=== PATIENT | female | born 1930 | race Caucasian/White ===

== ENCOUNTER 2017-06-30 08:22 | Emergency (ER) | payer MEDICARE ==
[2017-06-30 08:32] VITALS: TEMP 97.7
[2017-06-30] MEDS ORDERED: SODIUM CHLORIDE 0.9% 500 ML IV STA (08:38)
[2017-06-30] MEDS ORDERED: MAG HYDROX/AL HYDROX/SIMETH 30 ML, HYOSCYAMINE ELIXIR 10 ML, CIMETIDINE HCL 300 MG PO STA ×3 (08:39)
--- NOTE | 2017-06-30 08:55 | ED ---
Abdominal Pain HPI - General Source: patient, RN notes reviewed Mode of arrival: ambulatory Limitations: no limitations <Anup Morton - Last Filed: 06/30/17 11:27> <Gregg Bobo - Last Filed: 06/30/17 11:38> - General Chief Complaint: Abdominal Pain Stated Complaint: weakness/upset stomach Time Seen by Provider: 06/30/17 08:37 - History of Present Illness Initial Comments: This 86-year-old female presents emergency Department with chief complaint of gastric pain. Patient has been having this pain on and off for the last few weeks. Patient states it usually gets worse at nighttime. She also noticed when she drank carbonated beverages that it did increase her symptoms. Patient states that she has no pain that radiates to her back. Patient denies any chest pain at this time. She states she gets pressure in her epigastric region in between her breasts. Patient states that when she takes Tums that the symptoms resolved. Patient states that she is symptom-free at this time. Patient states that she did see her primary care physician who ordered a right upper quadrant ultrasound to rule out any gallbladder disease, this was normal. Patient does admit that she does not drink as much fluids as she usually does. Patient states she occasionally does have some dizzy spells. Patient states chronic she is not dizzy. (Anup Morton) - Related Data Home Medications Medication Instructions Recorded Confirmed Clopidogrel Bisulfate [Plavix] 75 mg PO DAILY 06/30/17 06/30/17 Multivitamins, Thera [Multivitamin 1 tab PO DAILY 06/30/17 06/30/17 (formulary)] Ranitidine HCl 150 mg PO BID 06/30/17 06/30/17 Simvastatin [Zocor] 20 mg PO DAILY 06/30/17 06/30/17 Previous Rx's Medication Instructions Recorded Omeprazole 40 mg PO DAILY #14 capsule. 06/30/17 Allergies Allergy/AdvReac Type Severity Reaction Status Date / Time No Known Allergies Allergy Verified 06/30/17 09:04 Review of Systems ROS Other: All systems not noted in ROS Statement are negative. <Anup Morton - Last Filed: 06/30/17 11:27> ROS Other: All systems not noted in ROS Statement are negative. <Gregg Bobo - Last Filed: 06/30/17 11:38> ROS Statement: Those systems with pertinent positive or pertinent negative responses have been documented in the HPI. Past Medical History Past Medical History: CVA/TIA, GERD/Reflux, Hyperlipidemia Additional Past Medical History / Comment(s): Pt reports having a stroke 10 years ago History of Any Multi-Drug Resistant Organisms: None Reported Past Surgical History: No Surgical Hx Reported Past Psychological History: Anxiety, Depression Smoking Status: Never smoker Past Alcohol Use History: None Reported Past Drug Use History: None Reported <Anup Morton - Last Filed: 06/30/17 11:27> General Exam Limitations: no limitations General appearance: alert, in no apparent distress Head exam: Present: atraumatic, normocephalic, normal inspection Eye exam: Present: normal appearance, PERRL, EOMI. Absent: scleral icterus, conjunctival injection, periorbital swelling ENT exam: Present: normal exam, normal oropharynx, mucous membranes moist, TM's normal bilaterally, normal external ear exam Neck exam: Present: normal inspection, full ROM. Absent: tenderness, meningismus, lymphadenopathy Respiratory exam: Present: normal lung sounds bilaterally. Absent: respiratory distress, wheezes, rales, rhonchi, stridor Cardiovascular Exam: Present: regular rate, normal rhythm, normal heart sounds. Absent: systolic murmur, diastolic murmur, rubs, gallop, clicks GI/Abdominal exam: Present: soft, normal bowel sounds. Absent: distended, tenderness, guarding, rebound, rigid Neurological exam: Present: alert, oriented X3, CN II-XII intact, reflexes normal. Absent: motor sensory deficit Skin exam: Present: warm, dry, intact, normal color. Absent: rash <Anup Morton - Last Filed: 06/30/17 11:27> Course <Anup Morton - Last Filed: 06/30/17 11:27> <Gregg Bobo - Last Filed: 06/30/17 11:38> Vital Signs 06/30/17 08:27 Temperature 97.7 F Pulse Rate 70 Respiratory 18 Rate Blood Pressure 149/69 O2 Sat by Pulse 97 Oximetry - Reevaluation(s) Reevaluation #1: 06/30/17 11:37 PT supervision: I did personally do a [id number] evaluation of the patient she is awake alert oriented 3 in no distress. I did review the imaging and reports of the lab work. She does have a hiatal hernia the symptoms are consistent with that. We did discuss this with the patient and with her niece who is a nurse was present with her. 06/30/17 11:38 (Gregg Bobo) Medical Decision Making - Lab Data Result diagrams: 06/30/17 10:15 06/30/17 10:15 <Anup Morton - Last Filed: 06/30/17 11:27> - Lab Data Result diagrams: 06/30/17 10:15 06/30/17 10:15 <Gregg Bobo - Last Filed: 06/30/17 11:38> - Medical Decision Making 86-year-old female was in emergency department for intermittent nausea and acid reflux. Patient does have a hiatal hernia on x-ray. Patient's labwork is unremarkable. Patient is symptom-free at this time. We did discuss trying medication such as omeprazole to help with her acid reflux that she is able follow-up with her primary care physician and will be given on-call surgery if symptoms do not improve. Patient family agreed to plan (Anup Morton) - Lab Data Lab Results 06/30/17 06/30/17 06/30/17 Range/Units 10:15 10:15 10:15 WBC 6.6 (3.8-10.6) k/uL RBC 4.63 (3.80-5.40) m/uL Hgb 14.8 (11.4-16.0) gm/dL Hct 44.0 (34.0-46.0) % MCV 94.9 (80.0-100.0) fL MCH 32.0 (25.0-35.0) pg MCHC 33.7 (31.0-37.0) g/dL RDW 14.0 (11.5-15.5) % Plt Count 268 (150-450) k/uL Neutrophils % 67 % Lymphocytes % 20 % Monocytes % 9 % Eosinophils % 2 % Basophils % 1 % Neutrophils # 4.4 (1.3-7.7) k/uL Lymphocytes # 1.3 (1.0-4.8) k/uL Monocytes # 0.6 (0-1.0) k/uL Eosinophils # 0.1 (0-0.7) k/uL Basophils # 0.0 (0-0.2) k/uL Sodium 140 (137-145) mmol/L Potassium 4.1 (3.5-5.1) mmol/L Chloride 103 (98-107) mmol/L Carbon Dioxide 25 (22-30) mmol/L Anion Gap 12 mmol/L BUN 8 (7-17) mg/dL Creatinine 0.81 (0.52-1.04) mg/dL Est GFR (MDRD) Af Amer >60 (>60 ml/min/1.73 sqM) Est GFR (MDRD) Non-Af >60 (>60 ml/min/1.73 sqM) Glucose 91 (74-99) mg/dL Calcium 9.6 (8.4-10.2) mg/dL Total Bilirubin 0.8 (0.2-1.3) mg/dL AST 31 (14-36) U/L ALT 35 (9-52) U/L Alkaline Phosphatase 85 (38-126) U/L Troponin I <0.012 (0.000-0.034) ng/mL Total Protein 7.2 (6.3-8.2) g/dL Albumin 4.4 (3.5-5.0) g/dL Amylase 42 (30-110) U/L Lipase 308 H (23-300) U/L Disposition Time of Disposition: 11:29 <Anup Morton - Last Filed: 06/30/17 11:27> <Gregg Bobo - Last Filed: 06/30/17 11:38> Clinical Impression: Hiatal hernia Disposition: HOME SELF-CARE Condition: Stable Instructions: Hiatal Hernia (ED) Additional Instructions: Please return to the Emergency Department if symptoms worsen or any other concerns. Prescriptions: Omeprazole 40 mg PO DAILY #14 capsule.dr Referrals: Miguel Angel Sahu Jr, DO [Primary Care Provider] - 1-2 days Kassy Bryant MD [STAFF PHYSICIAN] - 1-2 days Addendum entered and electronically signed by Anup Morton PA-C 06/30/17 11: 30: EKG performed at 9:25 normal sinus rhythm with a rate of 63 MI interval 198 QS duration 82 QT/QTC 434/444
--- NOTE | 2017-06-30 09:50 | XR ---
EXAMINATION TYPE: XR chest 2V DATE OF EXAM: 06/30/2017 COMPARISON: NONE HISTORY: Upper abdominal and chest pain. TECHNIQUE: Frontal and lateral views of the chest are obtained. FINDINGS: There is chronic parenchymal change without suspicious focal air space opacity, pleural ef fusion, or pneumothorax seen. There is mild to moderate apical pleural and parenchymal scarring. The re is left basilar linear scarring. The cardiac silhouette size is within normal limits with atherosc lerotic and ectatic thoracic aorta. Retrocardiac opacity consistent with moderate to large size hiata l hernia is present. The osseous structures are demineralized. Suspect azygos lobe or fissure. IMPRESSION: Chronic parenchymal changes without acute pulmonary process. Moderate to large size like ly fixed hiatal hernia noted.
--- NOTE | 2017-06-30 09:51 | XR ---
EXAMINATION TYPE: XR KUB DATE OF EXAM: 06/30/2017 9:41 AM CLINICAL HISTORY: Upper abdominal pain. TECHNIQUE: Two Upright KUB images of the abdomen are obtained. COMPARISON: None. FINDINGS: Scattered gas is seen in non-distended small bowel loops. Gas and fecal material is seen in non-distended colon. There are scattered pelvic phleboliths. There is left basilar linear scarring. Retrocardiac opacity consistent with moderate size hiatal hernia is noted. No pneumoperitoneum is pre sent. Slight underlying scoliotic curvature is seen. There is mild to moderate multilevel spurring in the lumbar spine. Mild to moderate joint space loss in both hips is present. IMPRESSION: Overall nonobstructive bowel gas pattern.
[2017-06-30 10:53] LABS: Basophils % (A) 1 %; CH 31.2; Eosinophils # (A) 0.1 k/uL (0-0.7); Eosinophils % (A) 2 %; HDW 2.48; HGB 14.8 gm/dL (11.4-16.0); Luc # (Auto) 0.19; Luc % (Auto) 3; Lymphocytes # (A) 1.3 k/uL (1.0-4.8); Lymphocytes % (A) 20 %; MCHC 33.7 g/dL (31.0-37.0); MCV 94.9 fL (80.0-100.0); Mean Platelet Volume 7.2; Monocytes # (A) 0.6 k/uL (0-1.0); Monocytes % (A) 9 %; Neutrophils # (A) 4.4 k/uL (1.3-7.7); Neutrophils % (A) 67 %; RBC 4.63 m/uL (3.80-5.40); WBC 6.6 k/uL (3.8-10.6); WBC (Perox) 6.73
[2017-06-30 11:00] LABS: ALT 35 U/L (9-52); AST 31 U/L (14-36); Alkaline Phosphatase 85 U/L (38-126); Amylase 42 U/L (30-110); Anion Gap 12 mmol/L; Blood Urea Nitrogen 8 mg/dL (7-17); Calcium 9.6 mg/dL (8.4-10.2); Carbon Dioxide 25 mmol/L (22-30); Chloride 103 mmol/L (98-107); Glucose 91 mg/dL (74-99); Non-African American GFR(MDRD) >60 (>60 ml/min/1.73 sqM); Potassium 4.1 mmol/L (3.5-5.1); Sodium 140 mmol/L (137-145); Total Bilirubin 0.8 mg/dL (0.2-1.3); Total Protein 7.2 g/dL (6.3-8.2)
[2017-06-30 12:08] VITALS: BP 156/71; PULSE 65; RESP 17
== END 2017-06-30 12:08 | disposition home or self-care (01) ==
LOC: EC 08:22
DX: K44.9 Diaphragmatic hernia without obstruction or gangrene (principal); K21.9 Gastro-esophageal reflux disease without esophagitis; E78.5 Hyperlipidemia, unspecified; Z86.73 Personal history of transient ischemic attack (TIA), and cerebral infarction without residual deficits; Z79.02 Long term (current) use of antithrombotics/antiplatelets; Z79.899 Other long term (current) drug therapy
CPT/HCPCS: 36415; 71020; 74000; 80053; 82150; 83690; 84484; 85025; 93005; 96360; 99284

== ENCOUNTER → 2017-07-27 | Outpatient (CLI) | payer MEDICARE ==
--- NOTE | 2017-07-27 08:59 | US ---
EXAMINATION TYPE: US abdomen complete DATE OF EXAM: 07/27/2017 COMPARISON: NONE CLINICAL HISTORY: R10.84 Abd pain. Elderly patient says she gets intermittent abd but get reliefs fro m flatulence EXAM MEASUREMENTS: Liver Length: 13.7 Gallbladder Wall: 0.2m CBD: 0.7m Spleen: not seen Right Kidney: 7.5 x 4.6 x 4.0 Left Kidney: 8.6 x 4.5 x 2.8 Pancreas: wnl Liver: wnl Gallbladder: wnl Evidence for sonographic Luna's sign: no CBD: wnl Spleen: not seen due to bowel gas and petite torso Right Kidney: smaller in size Left Kidney: smaller in size Upper IVC: wnl Abd Aorta: wnl The visualized liver is homogenous. The intrahepatic portion of the IVC and visualized abdominal aor ta are within normal limits. There is no evidence of cholelithiasis. Common bile duct is within nor mal limits for patient's age. The visualized portions of the pancreas are homogenous. The spleen is not successfully visualized on today's study. Kidneys are symmetric and free of hydronephrosis. Marvin e cortical thinning is present bilaterally. No renal lesions are seen on images saved. IMPRESSION: No significant finding is seen to account for patient's symptoms.
== END | disposition home or self-care (01) ==
LOC: RADUSWWP 07:12
PROVIDERS: ATTEND Family Medicine
DX: R10.84 Generalized abdominal pain (principal)
CPT/HCPCS: 76700

== ENCOUNTER → 2018-11-22 | Outpatient (CLI) | payer MEDICARE ==
--- NOTE | 2018-11-22 16:17 | CT ---
EXAMINATION TYPE: CT abdomen pelvis w con DATE OF EXAM: 11/22/2018 COMPARISON: Correlation ultrasound 07/27/2017 HISTORY: 87-year-old female LLQ mass felt by physician. TECHNIQUE: Contiguous axial scanning of the abdomen and pelvis following administration of 100 ml Iso sukhjinder 300 IV contrast. Delayed images through the kidneys and coronal/sagittal reconstructions perform ed. CT DLP: 346.3 mGycm Automated exposure control for dose reduction was used. FINDINGS: Heart upper limits of normal in size without pericardial effusion. There is a large hiatal hernia inv olving two thirds of the stomach. Some strandy atelectasis at both lung bases. Some focal fat along the anterior falciform ligament. Otherwise, no focal liver lesion. Portal venous system is patent. No biliary ductal dilatation. Gallbladder, adrenal glands, kidneys, spleen, and pancreas appear within normal limits. Moderate atherosclerotic calcifications within the abdominal aorta and iliac arteries. No aneurysm. No mesenteric or retroperitoneal lymphadenopathy. Oral contrast has progressed to the rectum. Normal appendix. No significant stool burden. Bladder is urine distended. Uterus and small ovaries are visualized. No abnormal fluid collection in the pelvis or pelvic lymphadenopathy. There appears to be a moderate-sized fat-containing left femoral canal hernia measuring 3.0 cm wide, 4.6 cm long, and 4.1 cm AP. There is some adjacent mass effect with a bowing of the adjacent heteroge neous and some focal thickening at the neck of the hernia where the wall of the deep proximal sigmoid colon also extends. Bones: Right L5 hemisacralization. Degenerative changes throughout the lumbar spine. No osseous dest ructive process. IMPRESSION: 1. LARGE HIATAL HERNIA WITH TWO THIRDS OF THE STOMACH HERNIATED INTO THE LOWER CHEST. 2. MODERATE-SIZED FAT-CONTAINING LEFT FEMORAL CANAL HERNIA MEASURING 4.6 CM. THERE IS SOME MASS EFFEC T ONTO THE ADJACENT ADDUCTOR MUSCULATURE SUGGESTING POSSIBLE HERNIA INCARCERATION. A SMALL PORTION OF THE LEFT LATERAL WALL OF THE PROXIMAL SIGMOID COLON IS ALSO MAKING ITS WAY INTO THE HERNIA.
== END ==
LOC: RADCTMAIN 10:23
PROVIDERS: ATTEND Internal Medicine
DX: K45.8 Other specified abdominal hernia without obstruction or gangrene (principal); K41.90 Unilateral femoral hernia, without obstruction or gangrene, not specified as recurrent; K44.9 Diaphragmatic hernia without obstruction or gangrene; E78.5 Hyperlipidemia, unspecified
CPT/HCPCS: 82565; 84520; 74177; 36415; Q9967